=== PATIENT | female | born 1990 | race Caucasian/White ===

== ENCOUNTER 2021-08-04 12:27 | Emergency (ER) | payer MEDICAID, SELFPAY ==
[2021-08-04 12:28] VITALS: BP 109/84; PULSE 84; RESP 16; TEMP 36.1; O2SAT 100; BMI 28.0
--- NOTE | 2021-08-04 12:33 | ED.RN ---
PT HANDCUFFED. 2 [employer] FOR PLASTIC DEPUTIES AT THE BEDSIDE.
[2021-08-04 12:43] VITALS: BP 97/77
--- NOTE | 2021-08-04 12:56 | EDS_ITS ---
HPI HPI - Female History of Present Illness Chief Complaint: Vag Bld, Preg Informant: patient Pain Pain: Positive for Pelvic Pain Onset: Days (5) Context: Sudden Onset Timing: Continuous Quality: Positive for Dull Location: Suprapubic Worsened by: - (Nothing) Relieved by: - (Nothing) Bleeding Issue: Positive for Vaginal bleeding Onset: Days (5) Context: Sudden Onset Timing: Continuous Current Severity: Heavy Associated Symptoms Associated Symptoms: Negative for Dysuria and Frequency Last known menstrual period: 2 months ago Test: Positive Narrative Narrative: Patient presents with vaginal bleeding that has been constant for the past 5 days. Patient states she is approximately 6 to 8 weeks . Patient states her last normal menstrual period was 2 months ago. Patient states she has been passing nickel and quarter size clots. Patient states she has been going through 5 pads per day. Patient admits to some dull pain in the suprapubic area. Patient denies any dysuria or urinary frequency. PFSH PFSH Medical History Anxiety Asthma Back problem Bipolar 1 disorder Drug abuse Frequent headaches H/O emotional problems Heart disease History of multiple concussions Hypoglycemia Mitral valve prolapse PTSD (post-traumatic stress disorder) Vision problems Home Medications vit,[id number] [Prenatabs FA] 1 tab PO DAILY 08/04/21 [History Last Taken Unknown] Allergy/AdvReac Type Severity Reaction Status Date / Time No Known Allergies Allergy Unverified 09/09/19 14:53 Family History Mother Diabetes Heart disease passed 45 from heart disease complications Other Anxiety Depression H/O defect Mental disorder Myocardial infarction Psychiatric care Suicide attempt Surgical History History of D&C History of tonsillectomy Social History Smoking Status: Former smoker Tobacco: How many years used: 10 alcohol intake: never substance use type: former 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 what type of physical activity do you participate in: aerobics frequency: 3-4 times per week ROS ROS ED Constitutional Constitutional ED: Denies chills or fever(s) Eyes Eyes: Denies blurry vision or change in vision ENT ENT ED: Denies rhinorrhea or sore throat Cardiovascular Cardiovascular: Reports chest pain; Denies palpitations Respiratory/Chest Respiratory/Chest: Denies cough or dyspnea Gastrointestinal Gastrointestinal: Reports abdominal pain and nausea; Denies vomiting Genitourinary Genitourinary ED: Denies dysuria or urinary frequency Musculoskeletal Musculoskeletal: Reports back pain; Denies neck pain Integumentary Reports abscess; Denies rash Neurologic Neurologic: Denies headache(s) or weakness Allergic/Immunologic Allergic/Immunologic ED: Denies mouth swelling or urticaria EXAM Physical Exam Const Vital Signs: 08/04/21 12:28 08/04/21 12:43 Temperature 96.9 F L Temperature Source Temporal Pulse Rate 84 Respiratory Rate 16 Blood Pressure 109/84 H 97/77 Blood Pressure Mean 92 83 Pulse Ox 100 Oxygen Delivery Method Nasal Cannula Positive well nourished and well developed General Appearance ED: well developed and NAD HEENT Reports moist mucous membranes Neck supple and no JVD Resp normal respiratory effort and clear to auscultation bilaterally Cardio regular rate and regular rhythm GI normal to inspection, nondistended, normoactive bowel sounds and soft to palpation Palpation: tender suprapubic; Negative for guarding, rigid or rebound tenderness present Neuro oriented x3, CN's II-XII intact bilaterally and no sensory deficits noted Sensorium / Orientation: alert Motor Exam: strength 5/5 throughout Psych mental status grossly normal Skin Skin Narrative: There is tenderness in the axilla bilaterally. There is some mild edema and erythema. There is no fluctuance. There is some mild induration. There is no discharge or drainage. MDM MDM MDM Narrative Medical decision making narrative: CBC was within normal limits. Hemoglobin was 13.6 and hematocrit was 42.0. Basic metabolic profile was within normal limits. Quantitative hCG was less than 1. Urinalysis shows occult blood of 250 but there were 0-5 red blood cells. Leukocyte esterase was 25 with 5-10 white blood cells. Transvaginal pelvic ultrasound was obtained. There is no intrauterine mass or fluid collection. This was interpreted by the radiologist and reviewed by myself. Urine culture was ordered. Patient was given a prescription for a short course of Bactrim. Patient was instructed to follow-up with her primary care physician in 3 to 5 days. Patient understood and was agreeable with the plan. All questions were answered. Lab Data Attestation: I reviewed the patient's lab results. Labs: Laboratory Results - last 24 hr 08/04/21 08/04/21 08/04/21 12:55 12:55 12:55 WBC 8.1 RBC 4.60 Hgb 13.6 Hct 42.0 MCV 91.3 MCH 29.6 MCHC 32.4 RDW Std Deviation 50.3 H RDW Coeff of Pankaj 15.0 H Plt Count 198 MPV 10.5 Immature Gran % (Auto) 0.400 Neut % (Auto) 59.8 Lymph % (Auto) 31.2 Waller % (Auto) 5.4 Eos % (Auto) 2.1 Baso % (Auto) 1.1 H Absolute Neuts (auto) 4.9 Absolute Lymphs (auto) 2.54 Nucleated RBC % 0 Sodium 139 Potassium 4.3 Chloride 109 H Carbon Dioxide 28.0 Anion Gap 2 L BUN 10 Creatinine 0.74 Estim Creat Clear Calc 101.23 Est GFR (MDRD) Af Amer 115 Est GFR (MDRD) Non-Af 95 BUN/Creatinine Ratio 13.4 Glucose 116 H Calcium 8.6 HCG, Quant < 1 Urine Color Urine Clarity Urine pH Ur Specific [place] Urine Protein Urine Glucose (UA) Urine Ketones Urine Occult Blood Urine Nitrite Urine Bilirubin Urine Urobilinogen Ur Leukocyte Esterase Urine RBC Urine WBC Ur Squamous Epith Cells Urine Bacteria Urine Mucus 08/04/21 13:45 WBC RBC Hgb Hct MCV MCH MCHC RDW Std Deviation RDW Coeff of Pankaj Plt Count MPV Immature Gran % (Auto) Neut % (Auto) Lymph % (Auto) [place] % (Auto) Eos % (Auto) Baso % (Auto) Absolute Neuts (auto) Absolute Lymphs (auto) Nucleated RBC % Sodium Potassium Chloride Carbon Dioxide Anion Gap BUN Creatinine Estim Creat Clear Calc Est GFR (MDRD) Af Amer Est GFR (MDRD) Non-Af BUN/Creatinine Ratio Glucose Calcium HCG, Quant Urine Color Yellow Urine Clarity Clear Urine pH 7.0 Ur Specific [place] 1.015 Urine Protein Negative Urine Glucose (UA) Normal Urine Ketones Negative Urine Occult Blood 250 H Urine Nitrite Negative Urine Bilirubin Negative Urine Urobilinogen Normal Ur Leukocyte Esterase 25 H Urine RBC 0-5 SEEN Urine WBC 5-10 SEEN Ur Squamous Epith Cells 0 SEEN Urine Bacteria 0 SEEN Urine Mucus 0 SEEN Radiography Diagnostic Testing: Clinical Impression(s) from Imaging Studies Obstetrics Ultrasound 08/04/21 13:02 IMPRESSION: 1. No uterine mass or endometrial canal fluid collection. Electronically Signed: Manas Nunes MD ([place]) at 14:39 EDT Reading Location ID and State: [address] [place] [address] , Service support , Discharge Plan Triage Chief Complaint: Vag Bld, Preg Other Complaint: Abscess ED Provider: Juanjo Aragon Dx/Rx/DC Orders Clinical Impression: Spontaneous miscarriage, Urinary tract infection Instructions: ED MISCARRIAGE Completed, ED CYSTITIS Female Adult Prescriptions: No Action Prenatabs FA 29-1 mg Tablet 1 tab PO DAILY RF: 0 Primary Care Provider: Care Physician,No Primary Referrals: Laura Abel [NON-STAFF] - 3-5 Days Care Physician,No Primary [Primary Care Provider] - Disposition Disposition: Home, Self Care
--- NOTE | 2021-08-04 13:02 | US_ITS ---
STUDY: FIRST TRIMESTER OBSTETRICAL ULTRASOUND REASON FOR EXAM: Female, 31 years old Vaginal bleeding LMP: 06/03/2021 TECHNIQUE: Transvaginal TECHNICAL QUALITY: Adequate. PRIOR ULTRASOUND: None. FINDINGS: There is no demonstrated intrauterine gestational sac. The uterus measures 8.1 x 5.6 x 3.9 cm. Nabothian cyst identified. Scattered endometrial calcifications but no focal fluid collection. There is no demonstrated uterine fibroid. The cervix is closed. The right ovary measures 3.4 x 4.2 x 2.1 cm. There is no right ovarian cyst. There is no visualized right adnexal mass or complex lesion. The left ovary measures 3.9 x 2.9 x 1.4 cm. There is no left ovarian cyst. There is no visualized left adnexal mass or complex lesion. There is no fluid in the cul de sac. US/Transvaginal w/Preg US IMPRESSION: 1. No uterine mass or endometrial canal fluid collection. Electronically Signed: Manas Nunes MD ([place]) at 14:39 EDT Reading Location ID and State: [address] [place] [address] , Service support ,
[2021-08-04 13:12] LABS: Absolute Lymphocyte Count 2.54 X10^3/uL (0.83-4.51); Absolute Neutrophil Count 4.9 X10^3/uL (2.0-7.7); Basophil# 0.09 X10^3/uL; Basophil% 1.1 % (0-1); Eosinophil# 0.17 X10^3/uL; Eosinophils% 2.1 % (0-5); Hemoglobin 13.6 g/dL (12.0-15.0); Lymphocyte # 2.54 X10^3/ul (0.83-4.51); Lymphocyte % 31.2 % (19-41); Mean Corp Hgb Conc 32.4 g/dL (32-36); Mean Corpuscular Hgb 29.6 pg (27.0-32.0); Mean Corpuscular Volume 91.3 fL (81-99); Mean Platelet Vol. 10.5 fl (6.2-12.0); Monocyte# 0.44 X10^3/uL; Monocyte% 5.4 % (0-10); NRBC Flagged by Analyzer 0 % (0-5); Neutrophil # 4.87 X10^3/uL (2.7-7.7); Neutrophil % 59.8 % (47-70); Platelet Count 198 K/mm3 (150-450); RBC Distribution Width SD 50.3 fl (35.1-43.9); White Blood Count 8.1 K/mm3 (4.4-11.0)
[2021-08-04 13:27] LABS: Anion Gap 2 (5-15); BUN 10 mg/dL (7-18); BUN/Creat Ratio 13.4 RATIO (10-20); Calcium,Total 8.6 mg/dL (8.5-10.1); Chloride 109 mmol/L (98-107); Creatinine, Serum 0.74 mg/dL (0.55-1.02); EST Glomerular Filtration Rate 95 mL/min (>60); Est Glom Filt Rate - Afr Amer 115 mL/min (>60); Estimated Creatinine Clearance 101.23 ml/min; Glucose 116 mg/dL (74-106); Potassium 4.3 mmol/L (3.5-5.1); Sodium Level 139 mmol/L (136-145)
[2021-08-04 13:49] LABS: Bacteria 0 SEEN /hpf (None Seen); Mucous, Urine 0 SEEN /hpf (<or=2+); Squamous Epithelial Cells - UA 0 SEEN /hpf (5-10)
[2021-08-04 13:51] LABS: Color, Urine Yellow (Yellow); Glucose, Dipstick Normal (Normal); Ketone-Dipstick Negative (Negative); Leukocyte Esterase-Dipstick 25 /ul (Negative); Nitrite-Dipstick Negative (Negative); Occult Blood-Urine 250 /ul (Negative); Protein-Dipstick Negative (Negative); Specific Gravity, Urine 1.015 (1.002-1.030); Urine Bilirubin Dipstick Negative (Negative); Urine Clarity Clear (Clear); Urine Urobilinogen Normal (Normal)
[2021-08-04 13:54] LABS: hCG Titer Quant., Serum < 1 mIU/mL (1-3)
[2021-08-04 13:54] LABS: Red Blood Cells-Urine 0-5 SEEN /hpf (0-5); White Blood Cells 5-10 SEEN /hpf (0-5)
[2021-08-04 16:04] VITALS: PULSE 91; RESP 15; O2SAT 97
== END 2021-08-04 16:04 | disposition home or self-care (01) ==
PROVIDERS: Emergency Provider Emergency Medicine; Visit Provider Emergency Medicine
DX: O03.9 Complete or unspecified spontaneous abortion without complication (principal); O23.41 Unspecified infection of urinary tract in pregnancy, first trimester; Z87.891 Personal history of nicotine dependence
CPT/HCPCS: 76817; 80048; 81001; 84702; 85025; 99282; A4216